=== PATIENT | male | born 1995 | race Caucasian/White ===

== ENCOUNTER 2017-07-13 14:58 | Emergency (ER) | payer OTHER ==
[~2017-07-13] VITALS: Ht 185.4 cm; Wt 83.0 kg
[~2017-07-13 14:58] MED LIST: Z.0.NO CURRENT MEDS
[2017-07-13 15:26] VITALS: BP 144/64; PULSE 113; RESP 16; TEMP 98.1; O2SAT 97
[2017-07-13] MEDS ORDERED: CYCL10TA PO (16:37)
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
== END 2017-07-13 17:36 | disposition home or self-care (01) ==
LOC: PHED 14:58 → PHEFT 17:36
DX: S39.012A Strain of muscle, fascia and tendon of lower back, initial encounter (principal); V49.40XA Driver injured in collision with unspecified motor vehicles in traffic accident, initial encounter; Z88.8 Allergy status to other drugs, medicaments and biological substances
CPT/HCPCS: 99283

== ENCOUNTER 2017-07-27 10:27 | Emergency (ER) | payer OTHER ==
[~2017-07-27] VITALS: Ht 185.4 cm; Wt 80.5 kg
[~2017-07-27 10:27] MED LIST changes: +CYCL10TA PO; -Z.0.NO CURRENT MEDS
[2017-07-27 10:40] VITALS: BP 136/77; PULSE 98; RESP 16; TEMP 98.3; O2SAT 98
[2017-07-27] MEDS ORDERED: SODIUM CHLORIDE 0.9% FLUSH 10 ML FLUSH IVF PRN (11:15)
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
[2017-07-27 11:49] LABS: AUTOMATED NEUTROPHIL # 4.7 TH/MM3 (1.8-7.7); BASOPHIL % 0.7 % (0.0-2.0); EOSINOPHIL % 0.4 % (0.0-4.0); HEMATOCRIT 49.5 % (39.0-51.0); HEMOGLOBIN 16.9 GM/DL (13.0-17.0); LYMPH % 19.9 % (9.0-44.0); LYMPHOCYTE # 1.3 TH/MM3 (1.0-4.8); MEAN CELL VOLUME 82.9 FL (80.0-100.0); MEAN CORPUSCULAR HEMOGLOBIN 28.3 PG (27.0-34.0); MEAN CORPUSCULAR HGB CONC 34.2 % (32.0-36.0); MEAN PLATELET VOLUME 9.8 FL (7.0-11.0); MONO % 9.9 % (0.0-8.0); MONOCYTE # 0.7 TH/MM3 (0-0.9); NEUT % 69.1 % (16.0-70.0); PLATELET COUNT 239 TH/MM3 (150-450); RED BLOOD COUNT 5.97 MIL/MM3 (4.50-5.90); RED CELL DISTRIBUTION WIDTH 12.5 % (11.6-17.2); WHITE BLOOD COUNT 6.7 TH/MM3 (4.0-11.0)
[2017-07-27 12:01] LABS: BICARBONATE 26.5 MEQ/L (21.0-32.0); CALCIUM 9.5 MG/DL (8.5-10.1)
[2017-07-27 12:06] VITALS: BP_SYST 119; BP_SYST 120; BP_SYST 122; BP_DIAS 61; BP_DIAS 72; BP_DIAS 77
[2017-07-27 12:34] VITALS: BP 121/73
== END 2017-07-27 12:37 | disposition home or self-care (01) ==
LOC: PHED 10:27
DX: Z04.1 Encounter for examination and observation following transport accident (principal); R42 Dizziness and giddiness
CPT/HCPCS: 70450; 80048; 85025; 99284